=== PATIENT | male | born 1985 | race American Indian/Alaskan Native ===

== ENCOUNTER 2017-05-19 19:32 | Emergency (ER) | payer SELFPAY ==
[2017-05-19 19:33] VITALS: BMI 23.0
[2017-05-19 19:46] VITALS: RESP 16; TEMP 98.9
--- NOTE | 2017-05-19 20:39 | ED PDOC ---
Arrival/HPI - General Chief Complaint: ENT Problem Time Seen by Provider: 05/19/17 20:13 Historian: Patient - History of Present Illness Narrative History of Present Illness (Text): 05/19/17 20:36 32 yo M c/o 2 day h/o pain under the R jaw and R ear. Reports taking tylenol with no improvement. Denies any fever, chills, sore throat, cough, toothache, facial swelling, neck pain, dyspnea, dysphagia, odynophagia, SOB, or headache. PMD in [place] Past Medical History - Provider Review Nursing Documentation Reviewed: Yes - Infectious Disease Hx of Infectious Diseases: None - Tetanus Immunization Tetanus Immunization: Unknown - Past Medical History Past Medical History: No Previous - Cardiac Hx Hypertension: Yes Other/Comment: CP - Pulmonary Hx Respiratory Tract Infection: Yes (Recent) - Musculoskeletal/Rheumatological Hx Back Pain: Yes Hx Herniated Disk: Yes - Gastrointestinal Hx Gastrointestinal Ulcer: Yes - Psychiatric Hx Anxiety: Yes Hx Substance Use: No (Denies) - Past Surgical History Past Surgical History: No Previous - Anesthesia Hx Anesthesia: No Hx Anesthesia Reactions: No Hx Malignant Hyperthermia: No - Suicidal Assessment Feels Threatened In Home Enviroment: No Family/Social History - Physician Review Nursing Documentation Reviewed: Yes Family/Social History: No Known Family HX Smoking Status: Light Smoker < 10 Cigarettes Daily Hx Alcohol Use: No (Denies) Hx Substance Use: No (Denies) Hx Substance Use Treatment: No Allergies/Home Meds Allergies/Adverse Reactions: Allergies diphtheria toxoid,adsorbed Allergy (Verified 07/17/16 19:59) SWELLING NSAIDS (Non-Steroidal Anti-Inflamma Allergy (Verified 05/19/17 19:46) RASH tetanus toxoid, adsorbed Allergy (Verified 07/17/16 19:59) SWELLING Review of Systems - Review of Systems Constitutional: Normal. absent: Fatigue, Weight Change, Fevers ENT: Normal, Other (R ear pain ). absent: Sore Throat, Rhinorrhea, Epistaxis, Sinus Congestion Respiratory: Normal. absent: SOB, Cough, Sputum Musculoskeletal: Normal. absent: Arthralgias, Back Pain, Neck Pain Skin: Normal. absent: Rash, Pruritis, Skin Lesions Physical Exam - Physical Exam Narrative Physical Exam (Text): 05/19/17 20:40 GENERAL APPEARANCE: Patient is awake, alert, oriented x 3, in mild painful distress. SKIN: Warm, dry; (-) cyanosis, (-) rash. (-) Decubitus Ulcer EYES: (-) conjunctival pallor, (-) scleral icterus, (-) conjunctival hemorrhage. ENMT: Mucous membranes moist. TMs: (-) erythema. Airway patent: (-) stridor. Pharynx: (-) erythema, (-) exudate. Dentition : (-) tenderness, (-) edema of the gums. (-) Tenderness to the floor of the mouth under the tongue. NECK: (-) tenderness, (-) stiffness, (-) meningismus, (+) tender R sided anterior cervical lymphadenopathy under the R mandible, (-) mass, (-) edema. CHEST AND RESPIRATORY: (-) accessory muscle use. Lungs: (-) rales, (-) rhonchi, (-) wheezes, (-) rub; breath sounds equal bilaterally. HEART AND CARDIOVASCULAR: (-) irregularity; (-) murmur, (-) gallop, (-) rub. ABDOMEN AND GI: Soft; (-) tenderness, (-) guarding; (-) organomegaly; (-) mass ; (-) CVA tenderness. EXTREMITIES: (-) deformity; (-) cellulitis, (-) lymphangitis; (-) subungual hemorrhage; (-) edema. NEURO AND PSYCH: Mental status as above; (-) focal findings. Vital Signs Temp Pulse Resp BP Pulse Ox 05/19/17 21:08 64 16 126/98 H 100 05/19/17 19:42 98.9 F 76 16 132/90 98 Medical Decision Making ED Course and Treatment: 05/19/17 20:41 32 yo M c/o 2 day h/o pain under the R jaw and R ear. Reports taking tylenol with no improvement. On exam, patient noted to have tender lymphadenopathy, with no other findings. DDx: lymphadenopathy, sialadenitis, toothache Plan : - toradol IM - keflex PO Patient notified of findings of exam and likely diagnosis of lymphadenopathy. Patient states that he can not take NSAIDs due to h/o gastritis. Advised that he must follow up with primary care physician or the clinic in 1-2 days without fail. Advised to take medication as prescribed. Return to the emergency room at any time for any new or worsening symptoms. Patient states he fully agrees with and understands discharge instructions. States that he agrees with the plan and disposition. Verbalized and repeated discharge instructions and plan. I have given the patient opportunity to ask any additional questions. - Medication Orders Current Medication Orders: Discontinued Medications Amoxicillin (Amoxil 500 Mg Cap) 500 mg PO STAT STA PRN Reason: Protocol Stop: 05/19/17 20:35 Last Admin: 05/19/17 20:57 Dose: 500 mg Ketorolac Tromethamine (Toradol) 60 mg IM STAT STA Stop: 05/19/17 20:35 Last Admin: 05/19/17 20:57 Dose: 60 mg - PA / BUSINESS PROCESS ENGINEER / Resident Statement MD/DO has reviewed & agrees with the documentation as recorded. Disposition/Present on Arrival - Present on Arrival Any Indicators Present on Arrival: No History of DVT/PE: No History of Uncontrolled Diabetes: No Urinary Catheter: No History of Decub. Ulcer: No History Surgical Site Infection Following: None - Disposition Have Diagnosis and Disposition been Completed?: Yes Diagnosis: Lymphadenopathy Disposition: HOME/ ROUTINE Disposition Time: 20:38 Patient Plan: Discharge Condition: STABLE Discharge Instructions (ExitCare): Lymphadenopathy (ED) Print Language: ECUADOREAN Additional Instructions: Thank you for letting us take care of you today. You were treated for lymphadenopathy. The emergency medical care you received today was directed at your acute symptoms. If you were prescribed any medication, please fill it and take as directed. It may take several days for your symptoms to resolve. Return to the Emergency Department if your symptoms worsen, do not improve, or if you have any other problems. Please contact your doctor in 2 days for re-evaluation and follow up / or call one of the physicians/clinics you have been referred to that are listed on the Patient Visit Information form that is included in your discharge packet. Bring any paperwork you were given at discharge with you along with any medications you are taking to your follow up visit. Our treatment cannot replace ongoing medical care by a primary care provider (PCP) outside of the emergency department. Thank you for allowing the [facility] team to be part of your care today. Prescriptions: Amoxicillin 500 mg PO TID #30 tablet traMADol [Ultram] 50 mg PO TID #12 tab Referrals: [facility] [Outside] - Follow up with primary Forms: [employer] (Turkish)
[2017-05-19 21:08] VITALS: BP 126/98; PULSE 64; O2SAT 100
== END 2017-05-19 21:12 | disposition home or self-care (01) ==
LOC: ED 19:32
DX: R59.1 Generalized enlarged lymph nodes (principal)
CPT/HCPCS: 96372; 99282; J1885

== ENCOUNTER 2018-03-31 20:13 | Emergency (ER) | payer SELFPAY ==
--- NOTE | 2018-03-31 21:38 | ED PDOC ---
Arrival/HPI - General Time Seen by Provider: 03/31/18 21:38 Historian: Patient - History of Present Illness Narrative History of Present Illness (Text): 03/31/18 21:38 Patient was just placed in ED room. 03/31/18 21:40 This 33 yo male with pmh dental caries, drug abuse, presents to this ED c/o left upper dental pain x 1 day. Patient denies facial swelling, dysphagia, sob , cp, skin rash, WECLH or dizziness. Patient tolerates PO fluid and food Time/Duration: Other (see hpi) Symptom Course: Worsening Context: Home Past Medical History - Provider Review Nursing Documentation Reviewed: Yes - Infectious Disease Hx of Infectious Diseases: None - Tetanus Immunization Tetanus Immunization: Unknown - Past Medical History Past Medical History: No Previous - Cardiac Hx Hypertension: Yes Other/Comment: CP - Pulmonary Hx Respiratory Tract Infection: Yes (Recent) - Musculoskeletal/Rheumatological Hx Back Pain: Yes Hx Herniated Disk: Yes - Gastrointestinal Hx Gastrointestinal Ulcer: Yes - Psychiatric Hx Anxiety: Yes Hx Substance Use: No (Denies) - Past Surgical History Past Surgical History: No Previous - Anesthesia Hx Anesthesia: No Hx Anesthesia Reactions: No Hx Malignant Hyperthermia: No - Suicidal Assessment Feels Threatened In Home Enviroment: No Family/Social History - Physician Review Nursing Documentation Reviewed: Yes Family/Social History: Other (noncontributory) Smoking Status: Light Smoker < 10 Cigarettes Daily Hx Alcohol Use: No (Denies) Hx Substance Use: No (Denies) Hx Substance Use Treatment: No Allergies/Home Meds Allergies/Adverse Reactions: Allergies diphtheria toxoid,adsorbed Allergy (Verified 07/17/16 19:59) SWELLING NSAIDS (Non-Steroidal Anti-Inflamma Allergy (Verified 05/19/17 19:46) RASH tetanus toxoid, adsorbed Allergy (Verified 07/17/16 19:59) SWELLING Review of Systems - Review of Systems Constitutional: Normal. absent: Fatigue, Weight Change, Fevers, Night Sweats Eyes: Normal. absent: Vision Changes, Photophobia, Eye Pain ENT: Other (see hpi). absent: Sore Throat Respiratory: Normal. absent: SOB, Cough Cardiovascular: Normal. absent: Chest Pain, Palpitations Gastrointestinal: Normal. absent: Abdominal Pain, Nausea, Vomiting Genitourinary Male: Normal. absent: Dysuria, Frequency, Hematuria Musculoskeletal: Normal Skin: Normal. absent: Rash Neurological: Normal. absent: Headache, Dizziness, Focal Weakness, Gait Changes , Speech Changes, Facial Droop, Disequilibrium, Seizure Endocrine: Normal Hemo/Lymphatic: Normal Psychiatric: Normal Physical Exam Vital Signs Temp Pulse Resp BP Pulse Ox 03/31/18 21:42 98.5 F 72 18 117/75 99 Temperature: Afebrile Blood Pressure: Normal Pulse: Regular Respiratory Rate: Normal Appearance: Positive for: Well-Appearing, Non-Toxic, Comfortable Pain Distress: None Mental Status: Positive for: Alert and Oriented X 3 - Systems Exam Head: Present: Atraumatic, Normocephalic, Other (no facial swelling) Pupils: Present: PERRL Extroacular Muscles: Present: EOMI Conjunctiva: Present: Normal Mouth: Present: Moist Mucous Membranes, Normal Lips, Normal Tounge, Other ( Dental caries , No gum swelling or dental abscess). No: Drooling, Trismus Pharnyx: Present: Normal. No: ERYTHEMA, EXUDATE, TONSILS ENLARGED Nose (External): Present: Atraumatic Nose (Internal): Present: Normal Inspection Neck: Present: Normal Range of Motion, Trachea Midline. No: Meningeal Signs, MIDLINE TENDERNESS, Paraspinal Tenderness Respiratory/Chest: Present: Clear to Auscultation, Good Air Exchange. No: Respiratory Distress, Accessory Muscle Use, Wheezes, Retracting, Rhonchi Cardiovascular: Present: Regular Rate and Rhythm, Normal S1, S2. No: Murmurs Abdomen: No: Tenderness, Distention, Peritoneal Signs, Rebound, Guarding Back: Present: Normal Inspection Upper Extremity: Present: Normal Inspection, Normal ROM. No: Cyanosis, Edema Lower Extremity: Present: Normal Inspection, Normal ROM. No: Edema Neurological: Present: GCS=15, CN II-XII Intact, Speech Normal, Motor Func Grossly Intact, Normal Sensory Function, Normal Cerebellar Funct, Gait Normal, Memory Normal Skin: Present: Warm, Dry, Normal Color. No: Rashes Psychiatric: Present: Alert, Oriented x 3, Normal Insight, Normal Concentration Medical Decision Making ED Course and Treatment: 03/31/18 21:49 Re-evaluation. Patient feels better. Discussed results and plan with patient who expresses understanding. All questions answered and there is agreement with the plan to discharge home with instructions. Patient stable for discharge. Return if symptoms persist or worsen. Re-evaluation Time: 21:49 Reassessment Condition: Re-examined, Improved Disposition/Present on Arrival - Present on Arrival Any Indicators Present on Arrival: No History of DVT/PE: No History of Uncontrolled Diabetes: No Urinary Catheter: No History Surgical Site Infection Following: None - Disposition Have Diagnosis and Disposition been Completed?: Yes Diagnosis: Pain due to dental caries Disposition: HOME/ ROUTINE Disposition Time: 21:50 Patient Plan: Discharge Condition: GOOD Discharge Instructions (ExitCare): Tooth Decay, Adult (DC) Additional Instructions: Call private doctor and dentist for follow up visit in 1-2 days. Take medication as instructed. Return to emergency if symptoms worsen. Prescriptions: Acetaminophen [Tylenol 325mg tab] 650 mg PO Q4H PRN #20 tab PRN Reason: Pain, Severe (8-10) Amoxicillin [Amoxil 500 mg Cap] 500 mg PO TID #30 cap Chlorhexidine 0.12% [Peridex] 15 ml PO BID #1 bottle Referrals: Francia Wilkerson MD [Staff Provider] - Follow up with primary [facility] [Outside] - Follow up with primary Forms: WORK NOTE
[2018-03-31 21:43] VITALS: BP 117/75; PULSE 72; RESP 18; TEMP 98.5; O2SAT 99
[2018-03-31 21:44] VITALS: BMI 23.6
== END 2018-03-31 22:24 | disposition home or self-care (01) ==
LOC: ED 20:13
DX: K02.9 Dental caries, unspecified (principal)